=== PATIENT | male | born 1975 | race African-American/Black ===

== ENCOUNTER 2024-01-16 18:00 | Emergency (ER) | payer OTHER ==
[~2024-01-16] VITALS: Ht 182.9 cm; Wt 68.0 kg
[~2024-01-16 18:00] MED LIST: DIPH25CA83 MT; EPIN0.3P3 IM
[2024-01-16 18:12] VITALS: BP 118/80; PULSE 71; RESP 16; TEMP 97.9; O2SAT 99
[2024-01-16] MEDS ORDERED: IBUP-2029 MT (19:02)
[2024-01-16] MEDS ORDERED: DICL100G58 TP (19:02)
== END 2024-01-16 19:54 | disposition home or self-care (01) ==
LOC: ER 18:00
DX: M70.41 Prepatellar bursitis, right knee (principal); Y93.89 Activity, other specified
CPT/HCPCS: 73562; 99283

== ENCOUNTER 2025-11-18 14:42 | Emergency (ER) | payer OTHER ==
[~2025-11-18] VITALS: Ht 180.3 cm; Wt 66.0 kg
[~2025-11-18 14:42] MED LIST changes: +DICL100G58 TP; +IBUP-1455 MT
[2025-11-18 15:07] VITALS: O2SAT 100
[2025-11-18] MEDS ORDERED: HYDR-4009 MT (18:08)
[2025-11-18 19:01] VITALS: BP 117/83; PULSE 61; RESP 18; TEMP 36.8; O2SAT 100
== END 2025-11-18 19:02 | disposition home or self-care (01) ==
LOC: ER 14:42
DX: G89.29 Other chronic pain (principal); M54.50 Low back pain, unspecified; Z79.899 Other long term (current) drug therapy
CPT/HCPCS: 99283